=== PATIENT | male | born 1990 | race African-American/Black ===

== ENCOUNTER 2017-07-24 09:16 | Emergency (ER) | payer OTHER ==
[~2017-07-24] VITALS: Ht 162.6 cm; Wt 65.8 kg
[2017-07-24 09:18] VITALS: BP 111/77
[2017-07-24] MEDS ORDERED: BACTRIM DS TAB1 EACH PO (09:47)
[2017-07-24] MEDS ORDERED: MUPIROCIN15 GM TOP (09:47)
== END 2017-07-24 10:06 | disposition home or self-care (01) ==
LOC: ER 09:16
DX: L73.9 Follicular disorder, unspecified (principal); L02.31 Cutaneous abscess of buttock; F10.99 Alcohol use, unspecified with unspecified alcohol-induced disorder